=== PATIENT | male | born 1965 | race Caucasian/White ===

== ENCOUNTER → 2016-12-31 | Day surgery (SDC) | payer BC ==
[~2016-12-31] MED LIST: LIDOCAINE 2% MDV (20MG/ML) 20ML VIAL IV ONE; MIDAZOLAM HCL 2MG/2ML VIAL IV ONE; PROPOFOL 10 MG/ML VIAL IV ONE
--- NOTE | 2017-01-01 18:20 | Operative Note ---
DATE OF SURGERY: 12/31/2016 OPERATION: COLONOSCOPY to the cecum with cold biopsy forceps polypectomy x1, cold snare polypectomy x2, and electrocautery snare polypectomy x2. INDICATION: Colorectal cancer screening. ANESTHESIA: Intravenous sedation was administered by the department of anesthesiology and included Diprivan titrated to effect. PROCEDURE: Following informed consent from this alert individual including a discussion of the risks and benefits of the procedure and an opportunity for the patient to ask questions, the patient was in the left lateral decubitus position. A digital rectal examination was performed. No abnormalities were noted. Following this, the Olympus MCG160 video colonoscope was inserted into the rectum without resistance. The rectal mucosa had a normal appearance with normal folds and distensibility. The colonoscope was advanced up through the colon to the level of the cecum without much difficulty. Throughout the bowel the mucosa appeared normal, the folds were normal, and the bowel was fairly well distensible. There were a few scattered diverticula noted in the sigmoid colon. The cecum was defined by noting the appendiceal orifice and ileocecal valve. From this point, the colonoscope was then withdrawn. At the region of the hepatic flexure there was a sessile 5 mm polyp which was initially attempted to be removed with cold snare; however, electrocautery snare was needed to remove the polyp. The polyp was suctioned through the endoscope into a collection trap. A white eschar was noted. The colonoscope was then further withdrawn. Again diverticulosis was noted in the sigmoid colon. There were also 4 polyps noted in the sigmoid colon measuring between 3-7 mm in size. The smallest was removed with biopsy forceps. Two 4-5 mm polyps were removed with cold snare polypectomy and one 7 mm polyp was removed with electrocautery snare. The endoscope was then drawn back into a normal rectum. Retroflexion accomplished following air insufflation failed to demonstrate any additional changes. The endoscope was straightened and withdrawn. The patient tolerated the procedure well and was returned to the recovery area in stable condition. The colon preparation was good. IMPRESSION: 1. Sigmoid diverticulosis. 2. A 5 mm hepatic flexure polyp removed with electrocautery snare polypectomy. 3. Four sigmoid colon polyps measuring between 3-7 mm in size removed with a combination of biopsy forceps, cold snare, and electrocautery snare polypectomy. RECOMMENDATIONS: Further recommendations will be forthcoming pending results of pathology obtained today. The patient will growth following up with Dr. Nico Beverly as well. As always, thank you for allowing me to participate in the care of your patient. CC: Dr. Rush COLLAZO
== END | disposition home or self-care (01) ==
LOC: HOP 08:45
PROVIDERS: ATTEND Internal Medicine Gastroenterology
DX: Z12.11 Encounter for screening for malignant neoplasm of colon (principal); D12.3 Benign neoplasm of transverse colon; D12.5 Benign neoplasm of sigmoid colon; K57.30 Diverticulosis of large intestine without perforation or abscess without bleeding